=== PATIENT | female | born 1955 | race Caucasian/White ===

== ENCOUNTER 2022-04-07 07:50 | Outpatient (REF) | payer OTHER, SELFPAY ==
[2022-04-07 11:48] LABS: Hematocrit 41.1 % (37.0-47.0); Hemoglobin 13.6 g/dl (12.0-16.0); Mean Corpuscular HGB Conc 33.1 g/dl (31.0-35.0); Mean Corpuscular Hemoglobin 28.8 pg (27.0-33.0); Mean Corpuscular Volume 86.9 fL (80.0-98.0); Platelet Count 197 X10*3/uL (160-400); Red Blood Count 4.73 X10*6/uL (4.20-5.50); Red Cell Distribution Width 12.5 % (11.0-16.0); White Blood Count 3.8 X10*3/uL (4.8-10.8)
[2022-04-07 12:07] LABS: Alanine Aminotransferase 17 U/L (0-31); Albumin Level 4.1 g/dL (3.5-5.0); Alkaline Phosphatase 49 U/L (39-117); Anion Gap 10 (12-20); Aspartate Amino Transferase 17 U/L (5-31); Bilirubin Total 0.6 mg/dL (0.0-1.0); Blood Urea Nitrogen 16 mg/dL (9-16); Calcium 9.3 mg/dL (8.4-10.2); Carbon Dioxide 32 mmol/L (22-29); Chloride 100 mmol/L (96-108); Cholesterol 188 mg/dL; Estimated Glomerular Filt Rate > 60; Glucose Fasting 72 mg/dL (60-99); HDL Cholesterol 62 mg/dL; LDL Cholesterol Calculated 115 mg/dl; Sodium 138 mmol/L (135-145); Total Protein 6.3 g/dL (6.5-8.0); Triglycerides 59 mg/dL
[2022-04-07 12:10] LABS: TSH reflex Free T4 0.01 uIU/mL (0.32-4.0)
[2022-04-07 12:44] LABS: Free T4 (Free Thyroxine) 0.83 ng/dL (0.71-1.85)
== END 2022-04-07 07:51 | disposition home or self-care (01) ==
LOC: HO.WFDLDS 07:50
PROVIDERS: Visit Provider Hospitalist
DX: Z00.00 Encounter for general adult medical examination without abnormal findings (principal)
CPT/HCPCS: 36415; 80053; 80061; 84439; 84443; 85027

== ENCOUNTER 2022-05-21 11:14 | Outpatient (REF) | payer OTHER, SELFPAY ==
[2022-05-21 14:46] LABS: Anion Gap 14 (12-20); Blood Urea Nitrogen 13 mg/dL (9-16); Calcium 9.2 mg/dL (8.4-10.2); Carbon Dioxide 26 mmol/L (22-29); Chloride 105 mmol/L (96-108); Estimated Glomerular Filt Rate > 60; Glucose Random 87 mg/dL (60-115); Potassium 3.7 mmol/L (3.3-5.1); Sodium 141 mmol/L (135-145)
[2022-05-21 15:06] LABS: TSH reflex Free T4 0.01 uIU/mL (0.32-4.0)
[2022-05-21 16:00] LABS: Free T4 (Free Thyroxine) 0.94 ng/dL (0.71-1.85)
== END 2022-05-21 11:15 | disposition home or self-care (01) ==
LOC: HO.WFDLDS 11:14
PROVIDERS: Psychiatry & Neurology Neurology; Visit Provider Hospitalist
DX: G43.909 Migraine, unspecified, not intractable, without status migrainosus (principal); E03.9 Hypothyroidism, unspecified
CPT/HCPCS: 36415; 80048; 84439; 84443

== ENCOUNTER 2022-06-29 11:21 | Outpatient (REF) | payer OTHER, SELFPAY ==
--- NOTE | ~2022-06-29 | XR_ITS ---
EXAMINATION: XR SHOULDER, RIGHT CLINICAL INFORMATION: Right shoulder pain COMPARISON: None TECHNIQUE: AP external rotation, Grashey, scapular Y, and axillary views of the right shoulder. FINDINGS: The bones and soft tissues are normal. No fracture. Glenohumeral and acromioclavicular alignment is anatomic with normal joint space. No abnormal soft tissue calcifications. XR/XR shoulder RT min 2V IMPRESSION: Normal right shoulder.
== END 2022-06-29 11:22 | disposition home or self-care (01) ==
LOC: HO.HOSX 11:21
PROVIDERS: Visit Provider Orthopaedic Surgery
DX: M24.811 Other specific joint derangements of right shoulder, not elsewhere classified (principal)
CPT/HCPCS: 73030; 99202

== ENCOUNTER 2022-06-30 10:48 | Outpatient (REF) | payer OTHER, SELFPAY ==
[2022-06-30 14:15] LABS: MANUAL DIFF FLAG NO
[2022-06-30 14:54] LABS: Alanine Aminotransferase 19 U/L (0-31); Albumin Level 4.3 g/dL (3.5-5.0); Alkaline Phosphatase 79 U/L (39-117); Anion Gap 15 (12-20); Aspartate Amino Transferase 22 U/L (5-31); Bilirubin Total 0.6 mg/dL (0.0-1.0); Blood Urea Nitrogen 11 mg/dL (9-16); Calcium 9.6 mg/dL (8.4-10.2); Carbon Dioxide 29 mmol/L (22-29); Chloride 96 mmol/L (96-108); Estimated Glomerular Filt Rate > 60; Glucose Random 76 mg/dL (60-115); Potassium 3.1 mmol/L (3.3-5.1); Sodium 137 mmol/L (135-145); Total Protein 6.7 g/dL (6.5-8.0)
[2022-06-30 15:17] LABS: T4 Thyroxine 5.5 ug/dL (4.5-12.0); Thyroid Stimulating Hormone 0.01 uIU/mL (0.32-4.0)
[2022-06-30 15:51] LABS: Basophils Percent Auto 0.7 % (0-2); Eosinophils Absolute Auto 0.3 X10*3/uL (0.0-0.4); Eosinophils Percent Auto 5.8 % (0-4); Hematocrit 40.9 % (37.0-47.0); Hemoglobin 14.1 g/dl (12.0-16.0); Imm Gran Abs Auto 0.01 X10*3/uL (0.00-0.03); Imm Gran Pct Auto 0.2 % (0.0-0.4); Lymphocytes Absolute Auto 1.4 X10*3/uL (1.2-4.9); Lymphocytes Percent Auto 33.6 % (20-40); Mean Corpuscular HGB Conc 34.5 g/dl (31.0-35.0); Mean Corpuscular Hemoglobin 29.5 pg (27.0-33.0); Mean Corpuscular Volume 85.6 fL (80.0-98.0); Mean Platelet Volume 9.8 fL (9.4-12.3); Monocytes Absolute Auto 0.4 X10*3/uL (0.1-1.2); Monocytes Percent Auto 9.1 % (2-11); Neutrophils Absolute Auto 2.2 x10*3/uL (2.0-8.3); Neutrophils Percent Auto 50.6 % (45-73); Platelet Count 258 X10*3/uL (160-400); Red Blood Count 4.78 X10*6/uL (4.20-5.50); Red Cell Distribution Width 12.8 % (11.0-16.0); White Blood Count 4.3 X10*3/uL (4.8-10.8)
[2022-07-02 10:03] LABS: Triiodothyronine T3 Free 3.3 pg/mL (2.3-4.2)
[2022-07-06 04:47] LABS: Testosterone-Albumin 4.2 g/dL (3.6-5.1); Testosterone-Bioavailable 13.1 ng/dL (0.5-8.5); Testosterone-Free 6.8 pg/mL (0.2-5.0); Testosterone-SHBG 129 nmol/L (14-73); Testosterone-Total 184 ng/dL (2-45)
[2022-07-07 22:12] LABS: Estradiol Ultra Sensitive 9 pg/mL
[2022-07-14 13:47] LABS: Progesterone 0.3 ng/mL
== END 2022-06-30 10:49 | disposition home or self-care (01) ==
LOC: HO.WFDLDS 10:48
PROVIDERS: Visit Provider Nurse Practitioner
DX: E03.9 Hypothyroidism, unspecified (principal); N95.9 Unspecified menopausal and perimenopausal disorder; Z79.890 Hormone replacement therapy
CPT/HCPCS: 36415; 80053; 82670; 84144; 84402; 84403; 84436; 84443; 84481; 85025

== ENCOUNTER 2022-07-17 14:54 | Outpatient (REF) | payer OTHER, SELFPAY ==
--- NOTE | ~2022-07-17 | MR_ITS ---
EXAMINATION: MR SHOULDER WITHOUT CONTRAST, RIGHT CLINICAL INFORMATION: Right shoulder pain following a fall one year ago. Internal derangement. COMPARISON: Right shoulder radiographs dated 06/29/2022. TECHNIQUE: MRI of the shoulder without contrast was performed on a high-field scanner. FINDINGS: ROTATOR CUFF: Mild supraspinatus tendinosis without a measurable rotator cuff tendon tear. No muscle atrophy or fatty infiltration. BICEPS: Absence of the proximal long head biceps tendon, consistent with a tear and tendon retraction. CORACOACROMIAL ARCH: The undersurface of the acromion is minimally curved with no subacromial spur. Mild acromioclavicular osteoarthritis. Fluid within the subacromial-subdeltoid bursa consistent with mild bursitis. LABRUM/CAPSULE: No displaced labral tear. Intact joint capsule. GLENOHUMERAL JOINT/MARROW: Mild articular cartilage signal heterogeneity with tiny marginal osteophytes. No acute osseous injury. DELTOID: Mild edema within the lateral deltoid muscle which could represent a mild strain or be related to recent injection. MR/MR shoulder RT wo con IMPRESSION: 1. Mild supraspinatus tendinosis without a measurable rotator cuff tendon tear. 2. Absence of the proximal long head biceps tendon, consistent with a tear and retraction. 3. Mild acromioclavicular osteoarthritis. Mild subacromial-subdeltoid bursitis. 4. Minimal glenohumeral arthrosis. 5. Mild strain of the lateral deltoid muscle.
== END 2022-07-17 14:55 | disposition home or self-care (01) ==
LOC: HO.MRI 14:54
PROVIDERS: Visit Provider Orthopaedic Surgery
DX: M24.811 Other specific joint derangements of right shoulder, not elsewhere classified (principal)
CPT/HCPCS: 73221

== ENCOUNTER → 2022-08-10 12:40 | Outpatient (BNVA) | payer OTHER, SELFPAY | PROVIDERS: PCP Hospitalist; Visit Provider Orthopaedic Surgery | DX: M24.811 Other specific joint derangements of right shoulder, not elsewhere classified (principal) | CPT/HCPCS: 20610; 99212; J1100 ==

== ENCOUNTER 2025-08-06 15:02 | Outpatient (AMB) | payer OTHER, SELFPAY ==
--- OUTSIDE RECORDS SUMMARY | 2024-07-03 14:11 | XMS_ITS | Encounter Summary ---
Author Organization [place] [address] Care Team Providers Care Solar Thermal Installer Name Role Phone Elsa Shaffer MD Primary Care Provider [phone] Encounter Details Date Type Department Care Team (Late st Contact Info) Description 07/03/2024 3:11 PM EDT Hospital Encounter TH HISTORIC ENCOUNTERS EASTERN CONVERSION ONLY Radha Cervantes, PA [address] [place] [address] Social History Tobacco Use Types Packs/Day Years Used Date Smoking Tobacco: Former Cigarettes 0 1 990 - 1969 Alcohol Use Standard Drinks/Week Comments Yes 0 (1 standard drink = 0.6 oz pur e alcohol) socially Interpersonal Safety Answer Date Record ed Physical Abuse Unrecognized value 02/02/2025 Verbal Abuse Unrecognized value 02/02/2025 Comments No Sex and Gender Information Value Date Recorded Sex Assigned at Female 08/12/2024 3:32 PM EST Legal Sex Female 4:53 PM EST Gender Identity Female 08/12/2024 3:33 PM EST Sexual Orientation Straight 08/12/2024 3: 32 PM EST documented as of this encounter Last Filed Vital Signs Vital Sign Reading Time Taken Comments Blood Pressure 158/88 07/03/2024 3:26 PM EDT Sit ting Left arm Pulse 87 07/03/2024 3:26 PM EDT Temperature - - Respiratory Rate - - Oxygen Saturation - - Inhaled Oxygen Concentration - - Weight 64 kg (141 lb) 07/03/2024 3:26 PM EDT Height 157.5 cm (5' 2 ) 07/03/2024 3:26 PM EDT Body Mass Index 25.79 07/03/2024 3:26 PM EDT documented in this encounter Functional Status * Calculated C-SSRS Risk Score (Lifetime/Recent) Answer Date of Assessment Author No Risk Indicated 02/02/2025 1:21 PM EDT Lakesha Dang RN * [place] Suicide Severity Rating Scale (Screener/Recent Self-Report) Question Answer Date of Assessment Author 1. Wish to be (Past 1 Month) No 025 1:21 PM EDT Lakesha Menchaca RN 2. Non-Specific Active Suici munira Thoughts (Past 1 Month) No 02/02/2025 1:21 PM EDT Agustina Menchaca RN 6. Suicidal Behavior (Lifetime) No 5 1:21 PM EDT Lakesha Menchaca RN documented as of this encounter Progress Notes * KAROL Henry - 07/03/2024 3:00 PM EDT [facility] Cc: Migraine Interval history Patient returns for follow up visit. She has been taking 25 mg amitriptyline (50 mg was too much, cannot recall specific SE). She continues to note same migraine frequency and has been waking during the night with migraine at times. [place] intermittent lava lamp sensation in her head and nausea at times. She discussed option of Botox treatment with Dr. Valdez but has decided that she is not interested. Last visit history: No new neurological symptom concerning since last visit Patient tried elavil and she had dry mouth and she couldn't tolerate the medication Since last visit she still reported almost daily headache most of them migrainous in nature with nausea photophobia phonophobia throbbing pain Reviewed and discussed lab results with the patient with normal CBC kidney liver function good level for vitamin D and vitamin B12 HPI: Viviane Rodriguez is a 69 y.o. year old female referred to our center by No primary care provider on file. for evaluation and management of headache 68 yo female with PMH of allergies , asthma allergy induced , Low TSH she is following with Dr Guido , gall bladder removal , Rt shoulder surgery , otosclerosis , tinnitus , foot surgery for bunions Headache: Patient presents for evaluation of headache. Symptoms began about when she was 4 years ago. Generally, the headaches last about several days and occur sometimes daily in morning improve with headaches, . The headaches are usually worse in the morning. The headaches are usually moderate and poorly described occasionally throbbing pounding and are located in Left frontal. The patient rates her most severe headaches a 9 on a scale from 1 to 10. Recently, the headaches have been decreasing in both severity and frequency. Work attendance or other daily activities are not affected by the headaches. Precipitating factors include: weather changes. The headaches are usually not preceded byan aura. Associated neurologic symptoms: worsening school/work performance. The patient denies nausea , photophobia phonophobia. Home treatment has included acetaminophen, amitriptyline, fioricet, Imitrex oral and propanolol, darkening the room, resting and sleeping with different response improvement. Other history includes: migraine headaches diagnosed in the past. Family history includes migraine headaches in mother and grandmother. Patient recently moved from [place] to [place] her headaches have been slightly different it is more of a morning headache that if does not resolve switch to a migrainous headache once she triedNurtec , uberlvy , inderal with no improvement in her headaches She also on hormonal therapy because of low testosterone She had MRI brain reported normal for her age She did one session of Botox 10/23 only one session , she stopped as she moved here to [place] She has difficulty with sleep wake up multiple times to urinate , she does not recall any snoring or waking with difficulty breathing Used take fiorcet Social history: Tobacco: Medical [place] license Alcohol No Drug use: marijuana She just moved from [place] Family history: There is no significant family history of multiple sclerosis, rheumatoid arthritis,type 1 diabetes, lupus, or other autoimmune diseases. Neurologic Exam: BP 158/88 (BP Location: Left arm, Patient Position: Sitting, Cuff Size: Adult Regular) Pulse 87 Ht 5' 2 (1.575 m) Wt 64 kg (141 lb) BMI 25.79 kg/m?? MS: AOx3 CN: perrla, V1-3 intact to LT, face symmetric, bilateral SCM/trapezius 5/5, tongue/uvula/palate midline Motor: 5/5 in all extremities Sensation: Intact to light touch, temperature, and vibration in all extremities Reflexes: 2+ in bilateral biceps and patellae, toes downgoing bilaterally Cerebellar: FNF intact bilaterally, FFM intact bilaterally, HODA intact bilaterally, tandem gait normal, romberg negative Labs: Reviewed available lab CBC liver function Imaging: No images were reviewed by me. A/P: Viviane Rodriguez is a 69 y.o. year old female with migraine. Trial of amitriptyline 50 mg was not tolerated, and headaches continue at 25 mg daily. She requests a trial of 30 mg to see if she will respond without adverse effects and will send a new prescription to her pharmacy. Begin trial of amitriptyline 30 mg hs Patient to monitor for any signs or symptoms of event concern for sleep apnea Sumatriptan abortive Take one tablet as needed for headaches, may repeat in 2 hours, do not exceed more than 2 per day Counseled on avoidance of migraine triggers, particularly sleep deprivation, missed meals, dehydration, certain foods and avoiding excessive caffeine/NSAIDs. -RTC in 3months for follow up The patient and I discussed the clinical picture during today's appointment. Additional time was spent prior to the actual appointment reviewing records, lab values and imaging results and preparing documentation for today's visit. There was also time spent following the in person visit documenting, arranging for further diagnostic testing and follow-up appointments. The entire time spent in this process was greater than 30 minutes. The majority of the actual yyhi-nm-aemt visit was spent counseling the patient with respect to the current neurological picture. Radha Cervantes PA-C documented in this encounter Plan of Treatment Upcoming Encounters Date Type Department Care Team (Late st Contact Info) Description 09/11/2025 2:30 PM EST Office Visit Internal Medicine - [address] [place] [address] Elsa Shaffer MD [address] [place] [phone] documented as of this encounter Visit Diagnoses Not on filedocumented in this encounter Care Teams Solar Thermal Installer Relationship Specialty Start Date End Date Elsa Shaffer MD PCP - General 10/15/22 07/27/24 documented as of this encounter
--- NOTE | 2025-08-06 15:04 | A.PHYSOV_ITS ---
Vital Signs 08/06/25 15:14 Height 5 ft 3 in Weight 117 lb BMI 20.7 Intake Visit Reasons: Left hip injection Intake Note: Patient is a 70 year old female in office for a left hip injection. Advanced Practice Registered Nurse Required: No Allergies prednisone Allergy (Verified 08/06/25 15:05) skin sensitive [facility] Medical History (Updated 08/06/25 @ 16:06 by KAROL Kumar) Asthma exacerbation, mild Scoliosis Depression Anxiety Surgical History History of cancer surgery History of cholecystectomy H/O shoulder surgery H/O tubal ligation Family History Father Colon cancer Mother No family history of mental disorder Anxiety Social History Household Members: None Both parents involved: No Housing: Condominium Alcohol intake: current Alcohol intake frequency: holidays/special occasions only Patient Tobacco Use Status: Former Tobacco user e-Cigarette/Vaping Use: Never Used Substance Use Type: Marijuana service: No Current occupational status: retired 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 All questions were answered to the patient's satisfaction. Verbal consent was obtained. The patient was eager to proceed. Patient was cleansed with Betadine, ethyl chloride was then used to desensitize the skin. Using an a 25-gauge needle 40 mg of Kenalog and 3 mL 2% lidocaine were injected over the greater trochanter of maximal tenderness. The patient tolerated the procedure well without immediate complication. Postinjection instructions were given. Hip (Bursa) Injection - : Left All charges added?: Procedure code (CPT) selection complete Office Meds Kenalog 40 mg/mL suspension for injection Performing Provider: KAROL Kumar [place] [facility] [place] [facility] Administered by: KAROL Kumar on 08/06/25 16:07 Dose Route Admin Location Dispensed Lot Number Expiration Date [facility] Technical Administrative Assistant 40 mg intra-articular 1 mL [id number] [employer] Total Dispensed Waste 1 mL 0 % lidocaine (PF) 20 mg/mL (2 %) injection solution Performing Provider: KRAOL Kumar Performing Location: [facility] Administered by: KAROL Kumar on 08/06/25 16:07 Dose Route Admin Location Dispensed Lot Number Expiration Date [facility] Technical Administrative Assistant 60 mg intra-articular 50 mL [id number] Total Dispensed Waste 50 mL 0 % Assessment & Plan Assessment & Plan (1) Trochanteric bursitis of left hip: Code(s): M70.62 - Trochanteric bursitis, left hip Category: Medical Plan: Ms. Rodriguez is a 70-year-old female seen in evaluation today for left greater trochanteric bursitis. Today she consented to left hip bursal injection. She was given post-injection instructions, recommend: Moist heat compresses for 15 minutes up to 5 times daily. Continue abduction exercises. Follow-up with our office as needed. Orders: Orders AMB Hip/Bursa Injection Today M70.62 - Trochanteric bursitis, left hip Coding Level of Care Code Procedure Only Diagnoses Trochanteric bursitis of left hip M70.62 CPT Codes AMB Hip Injection - Hip/Bursa Injection - 17987: Left ([id number])
[2025-08-06 15:14] VITALS: BMI 20.7
--- OUTSIDE RECORDS SUMMARY | 2025-08-06 19:48 | XMS_ITS | Clinical Summary ---
Author Organization [facility] Address [address] [place] [address] Phone Care Team Providers Care Rn Angiography Name Role Phone Elsa Shaffer MD Primary Care Provider Allergies Active Allergy Reactions Criticality Noted Date Comments Buspirone Rash Low 08/21/2024 Medications venlafaxine (EFFEXOR-XR) 150 MG 24 hr capsule Take 150 mg by mouth daily. Active venlafaxine (EFFEXOR-XR) 37.5 MG 24 hr capsule Take 1 capsule by mouth every morning. 08/01/2024 Active esomeprazole (NEXIUM) 40 MG capsule Take 40 mg by mouth 2 (two) times a day. Active triamterene-hyd roCHLOROthiazid e (MAXZIDE-25) 37.5-25 mg per tablet Take 1 tablet by mouth daily. 10/04/2023 Active ARMOUR THYROID 90 mg Tab Take 90 mg by mouth daily. Active ADVAIR HFA 230-21 mcg/actuation inhaler Inhale 2 puffs into the lungs 2 (two) times a day. Active amitriptyline (ELAVIL) 10 MG tablet Take 30 mg by mouth daily. Active fluticasone propionate (FLONASE) 50 mcg/actuation nasal spray 1 spray by Nasal route daily. 02/03/2024 Active valACYclovir (VALTREX) 500 MG tablet Take 500 mg by mouth 2 (two) times a day. Active Family History Medical History Relation Comments Brain cancer Brother Diverticulitis Brother Stomach cancer Father Alzheimer's disease Maternal Grandfather Alzheimer's disease Maternal Grandmother Diabetes type I Maternal Grandmother Social phobia Mother Diabetes type II Paternal Grandfather Post-traumatic stress disorder Sister Relation Status Comments Brother Father Maternal Grandfather Maternal Grandmother Mother Paternal Grandfather Sister Social History Tobacco Use Types Packs/Day Years Used Date Smoking Tobacco: Former Cigarettes Passive Smoke Exposure: Past Smokeless Tobacco: Never Tobacco Cessation:Counseling Given: No Comments:Quit smoking January 1990 Alcohol Use Standard Drinks/Week Comments Yes 0 (1 standard drink = 0.6 oz pur e alcohol) Rarely Education Answer Date Recorded Are you interested in more education? Not on wes e 06/02/2024 Are you concerned about learning? Not on file 06/02/2024 No 06/02/2024 No 06/02/2024 Digital Access Answer Date Recorded No 06/02/2024 No 06/02/2024 Reliable internet access at home? Not on file 06/02/2024 Device with a working camera? Not on file Comments Unknown Sex and Gender Information Value Date Recorded Sex Assigned at Female 08/14/2024 8:39 PM EST Legal Sex Female 9:24 AM EDT Gender Identity Female 08/14/2024 8:39 PM EST Sexual Orientation Straight 08/14/2024 8: 39 PM EST Plan of Treatment Health Maintenance Due Date Last Done Comments Adult Td,Tdap Booster 1954 POTASSIUM LEVEL 1954 DEPRESSION SCREENING 1966 SMOKING Hx and SMOKELESS TOB ACCO SCREENING 1967 HEPATITIS C SCREENING 1972 MAMMOGRAM 1994 COLOGUARD 1999 COLONOSCOPY 1999 COLORECTAL CANCER SCREENING 1999 FIT TEST 1999 FOBT 1999 SIGMOIDOSCOPY 1999 VIRTUAL COLONOSCOPY 1999 PNEUMOCOCCAL VACCINES (50+ y ears) (1 of 1 - PCV) 2004 ZOSTER VACCINES (1 of 2) 2004 OSTEOPOROSIS SCREENING INITI AL (ONE-TIME) 2019 INFLUENZA VACCINE (#1) 2025 COVID-19 VACCINE (1 - 2024-2 6 season) 2025 LIPID PANEL 07/26/2028 07/26/2023 RSV VACCINE (1 - 1-dose 75+ series) 2029 HEPATITIS A VACCINES Aged Out No long er eligible based on patient's age to complete this topic HIB VACCINES Aged Out No longer eligi ble based on patient's age to complete this topic MENINGOCOCCAL VACCINES (ACWY) Aged Out No longer eligible based on patient's age to complete this topic MENINGOCOCCAL VACCINES (B) Aged Out N o longer eligible based on patient's age to complete this topic Medical Devices Not on [place] [id number] [facility] MEDICARE [place] [address] [facility] [place] [id number] [facility] MEDICARE [address] [place] [facility] MEDICARE [address] [place] [facility] [place] [id number] [facility] MEDICARE REPLACEMENT Care Teams Rn Angiography Relationship Specialty Start Date End Date Elsa Shaffer MD [address] [phone] PCP - General Internal Medicine 05/29/24 Additional Source Comments The information contained in this document represents components of the legal health record. It is not the complete legal health record.[facility]
--- OUTSIDE RECORDS SUMMARY | 2025-08-06 19:48 | XMS_ITS | Data Portability ---
Author Organization [place] [facility] [employer] Address [address] [place] [address] Care Team Providers Care Legal Mediator Name Role Phone CRISTOBAL CASTANO Primary Care Provider CRISTOBAL Rivas Referring Provider Unavailable Assessment No assessment recorded. Plan of Treatment Reminders Order Date Submit Date Provider Last Modified By Organization Details Last Modified Time Details Appointments OFFICE VISIT 2025 02:30P M Not available Not available Not available Lab TSH + free T4, serum [address], Lab Department, [place], [address], 02/27/2025 14:40:33 T4, free, serum [address], Lab Department, [place], [address], 01/31/2025 21:01:33 T3, total, serum [address], Lab Department, [place], [address], 12/26/2024 15:24:50 thyroid peroxidas e (tpo) Ab, serum [address], Lab Department, [place], [address], 01/31/2025 21:01:35 thyroglob ulin Ab, serum 2024 025 [facility], [address] [facility], Lab Department, [place], [address], 12/26/2024 15:24:50 Referral None recorded. Procedures None recorded. Surgeries None recorded. Imaging None recorded. Medication Orders levothyro xine 75 mcg tablet 2024 025 [id number], [address] [facility], [place], [place], [id number], 12/26/2024 15:23:23 Patient TargetsNo targets recorded. Patient Instructions Encounter Date Encounter Id Patient Instructions Last Modified By Organization Details Last Modified Time 12/26/2024 [id number] 1. Stop taking t he [place] Thyroid. 2. Start doing the levothyroxine 75 mcg daily 3. I would like to see you in 2 months and do the blood test a week before our appointment Not available 12/26/2024 15:24:02 02/27/2025 [id number] hypothyroidism: care instructions Not available 02/27/2025 14:39:08 1. Your thyroid levels are doing well I would like you to continue with the levothyroxine 75 mcg daily. 2. Talked with the nurse practitioner doing your hormones stating that you are having hot flashes in your not able to sleep well at night. Not available 02/27/2025 14:39:50 Reason for Referral None Reported. Results Created Date Observation Date Name Description Value Unit Range Abnormal Flag Note LastModifiedBy Organization Detail LastModifiedTime 02/01/2001/31/2025 THYRO XINE FREE free T4 1.33 NG/dL 0.70-1 .80 Not Available [facility] [address] [place], [address], 01/31/2025 21:01:33 02/01/20 25 01/31/2025 THYRO XINE TOTAL T4, total 10.2 mcg/d L 4.5-10 .9 Not Available [facility] [address] [place], [address], 01/31/2025 21:01:34 02/01/20 25 01/31/2025 THYRO GLOBU MARISEL ANTIB FLORIN antithyroglo bulin Ab 22.0 I_uni t/mL <=60.0 Not Available [facility] [address] [place], [address], 01/31/2025 21:01:34 02/01/20 25 01/31/2025 THYRO ID PEROX IDASE ANTIB FLORIN thyroid peroxidase Ab 43.0 I_uni t/mL <=60.0 Not Available [facility]/S [address] [place], [address], 01/31/2025 21:01:35 02/01/20 25 01/31/2025 THYRO ID PEROX IDASE ANTIB FLORIN note See Report [facility], [address], [place] [address] Not Available [facility] [address] [place], [address], 01/31/2025 21:01:35 Result Notes None recorded. Problems Name Problem SNOMED Code Status Onset Date Resolution Date Notes Provider Name and Address Organization Details Recorded Time Hypothyroidism 18932985 Active 2024 Paras Moe MD [address] [place], [address], [facility] - [facility] 15:19:30 Problem Notes None recorded. Medical Equipment None Reported. Medications Name Sig Start Date Stop Date Status Note LastModified by Organization Details LastModified Time nystatin 100,000 unit/mL oral suspension SHAKE LIQUID AND TAKE 7.5 ML BY MOUTH TWICE DAILY FOR 14 DAYS active Not Available Not Available No t Available venlafaxine ER 37.5 mg capsule,ext ended release 24 hr TAKE 1 CAPSULE BY MOUTH DAILY active Not Available Not Available No t Available venlafaxine ER 75 mg capsule,ext ended release 24 hr TAKE 1 CAPSULE BY MOUTH DAILY IN THE EVENING. active Not Available Not Available No t Available [place] Thyroid 90 mg tablet TAKE 1 TABLET BY MOUTH EVERY DAY active Not Available Not Available No t Available venlafaxine 75 mg tablet TAKE TWO TABLETS BY MOUTH TWICE A DAY active Not Available Not Available No t Available nystatin 100,000 unit/gram topical ointment APPLY TO AFFECTED AREA S) THREE TIMES A DAY active Not Available Not Available No t Available sucralfate 1 gram tablet TAKE ONE TABLET BY MOUTH FOUR TIMES A DAY active Not Available Not Available No t Available venlafaxine ER 150 mg capsule,ext ended release 24 hr TAKE 1 CAPSULE BY MOUTH EVERY DAY active Not Available Not Available No t Available valacyclovi r 500 mg tablet TAKE ONE TABLET BY MOUTH TWICE A DAY active Not Available Not Available No t Available amitriptyli ne 50 mg tablet TAKE ONE TABLET BY MOUTH EVERY NIGHT AT BEDTIME active Not Available Not Available No t Available levothyroxi ne 75 mcg tablet TAKE 1 TABLET EVERY DAY 2024 active Not Available Not Available Not Avai lable triamcinolo ne acetonide 0.025 % topical cream APPLY TO AFFECTED AREA 3 TO 4 TIMES A PIYUSH NEEDED FOR IRRITATIO N. active Not Available Not Available No t Available amitriptyli ne 10 mg tablet TAKE THREE TABLETS BY MOUTH EVERY DAY active Not Available Not Available No t Available esomeprazol e magnesium 40 mg capsule,del ayed release TAKE 1 CAPSULE BY MOUTH TWICE DAILY BEFORE MEALS active Not Available Not Available No t Available buspirone 10 mg tablet TAKE ONE TABLET BY MOUTH THREE TIMES A DAY active Not Available Not Available No t Available buspirone 7.5 mg tablet TAKE ONE TABLET BY MOUTH TWICE A DAY active Not Available Not Available No t Available triamterene 37.5 mg-hydrochl orothiazide 25 mg tablet TAKE ONE TABLET BY MOUTH DAILY. active Not Available Not Available No t Available ketoconazol e 2 % topical cream APPLY TOPICALLY TO THE AFFECTED AREA TWICE DAILY active Not Available Not Available No t Available fluticasone propionate 50 mcg/actuati on nasal spray,suspe nsion ADMINISTE R 2 SPRAYS IN EACH NOSTRIL DAILY active Not Available Not Available No t Available hydroxyzine pamoate 25 mg capsule TAKE ONE CAPSULE BY MOUTH TWICE A DAY NEEDED FOR ANXIETY active Not Available Not Available No t Available Advair HFA 230 mcg-21 mcg/actuati on aerosol inhaler INHALE 2 PUFFS BY MOUTH TWICE DAILY. RINSE MOUTH WITH WATER AFTER USE FOR AFTERTAST E AND INCIDENCE OF CANDIDIAS IS. 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 12/26/2024 14:30:28 Date Recorded Body weight Oxygen saturation Heart rate Systolic And Diastolic Provider Name and Address Organization Details Last Updated DateTime 02/27/2025 65302.45 g 97 % 81 /min 118/78 mm[Hg] ARIELLE D[facility] 02/27/2025 14:20:37 Social History None recorded. Functional Status None recorded. Mental Status None recorded. Family History Nothing Reported. Medical History No medical history recorded. Gynecological HistoryNo gynecological history recorded. Obstetrics History GPAL:G 0 P 0 0 0 0 Past Encounters Encounter ID Performer Location Encounter Start Date Encounter Closed Date Diagnosis/Indication Diagnosis SNOMED-CT Code Diagnosis ICD10 Code Diagnosis IMO Codes Diagnosis Note [id number] Paras Moe MD [facility] [address] [place] [address] 12/26/2024 14:22:56 12/26/2024 15:29:01 Hypothyroidism 63761180 E03.9 [id number] She has had several blood work with TSH that have been suppressed . She is experienci ng weight loss. They have occasional racing heart rate. Overall all signs of possible high levels of thyroid.Th e symptomato logy could be related to the use of [place] Thyroid which has a high T3-T4 ratio and has been associated with tachyarrhy thmias in TSH.I need to find out if you do have a thyroid condition that requires supplement ation. I also need to find out the etiology that is why your thyroid is not working if is not working indeed. Will do some blood test for that.I am going to discontinu e the [place] Thyroid and switch to 75 mcg of levothyrox ine. [id number] Paras Moe MD [facility] [address] [place] [address] 02/27/2025 13:53:59 02/27/2025 14:40:12 Hypothyroidism 54564419 E03.9 [id number] Her most recent thyroid function test shows normal total T3 and free T4. She presents with Negative thyroid antibodies . Currently at 75 mcg of levothyrox ine. I will recommend to stay on that dose. Health Concerns Section Related Observation LastModified by Organization Detai ls LastModified Time None Recorded Concern Status LastModified by Organization Details LastModified Time None Recorded Advance Directives Directive None Recorded Payers Insurance Date Sequence Insurance Name Policy Number Policy Oseguera Covered Member ID Oseguera Member ID Guarantor Name 03/05/2025 1 [employer] (MEDICARE REPLACEMENT/ ADVANTAGE - PPO) Viviane Rodriguez [id number] Viviane Rodriguez Notes Date Note Type Note Provider Name and Address Organization Details Recorded Time 12/26/2024 text/html 77-year-old female referred because of abnormal thyroid functions. She tells me that for many years she has been followed thyroid supplementation. Guardedly [place] Thyroid 90. She has been living in [place] where she had the diagnosis.Used to be a smoker but quit in 1989. May have an occasional alcohol drinker.Family history she had 3 siblings none of them have thyroid palpitations. Does not recall any of her parents or grandparents with thyroid conditions.She does have issues with asthma, stomach problems but appears to be nervous stomach. She has PTSD anxiety.She takes penciclovir, triamterene 1 daily, uses albuterol occasionally and takes venlafaxine.She had a tubal ligation, cholecystectomy, cataract, shoulder repair, bladder sling. Paras Moe MD [address] [place], [address], [facility] - [facility] 01/07/2025 21:59:37 02/27/2025 text/html 69-year-old female referred because of abnormal thyroid functions. She tells me that for many years she has been followed thyroid supplementation. [place] Thyroid 90. She has been living in [place] where she had the diagnosis.Used to be a smoker but quit in 1989. May have an occasional alcohol drinker.Family history she had 3 siblings none of them have thyroid palpitations. Does not recall any of her parents or grandparents with thyroid conditions.She does have issues with asthma, stomach problems but appears to be nervous stomach. She has PTSD anxiety.She takes penciclovir, triamterene 1 daily, uses albuterol occasionally and takes venlafaxine.She had a tubal ligation, cholecystectomy, cataract, shoulder repair, bladder sling. She is being complaining of bursitis on her hip. She also had problems with her shoulder.She has not been able to get sleep at night due to the aches and pains. Paras Moe MD [address] [place], [address], [facility] - [facility] 03/05/2025 08:51:01 OBGyn Episode No OBEpisode recorded.
--- OUTSIDE RECORDS SUMMARY | 2025-08-06 19:48 | XMS_ITS ---
Author Name [facility] Organization Unknown History of Medication Use Medication Directions Dispensed Refills Start Date End Date Stat levothyroxine 75 mcg tablet Take 1 tablet every day by oral route. 12/26/2024 active amitriptyline (ELAVIL) tablet 50 mg Take 1 tablet (50 mg total) by mouth every night at bedtime. 05/08/2024 active sucralfate (CARAFATE) 1 g tablet Take 1 tablet (1 g total) by mouth 4 (four) times a day. 05/01/2024 active [place] Thyroid 90 MG tablet TAKE ONE TABLET BY MOUTH EVERY DAY 04/24/2024 active esomeprazole (NexIUM) 40 MG capsule Take 1 capsule (40 mg total) by mouth 2 (two) times a day. before meals 04/24/2024 active busPIRone (BUSPAR) 7.5 MG tablet Take 1 tablet (7.5 mg total) by mouth 2 (two) times a day. 04/12/2024 active venlafaxine (EFFEXOR-XR) 150 MG 24 hr capsule Take 1 capsule (150 mg total) by mouth daily. 04/12/2024 active Advair HFA 230-21 MCG/ACT inhaler 2 puffs 2 (two) times a day. 04/08/2024 active fluticasone (FLONASE) 50 MCG/ACT nasal spray ADMINISTER 2 SPRAYS IN EACH NOSTRIL DAILY 04/08/2024 active nystatin (MYCOSTATIN) ointment APPLY TO AFFECTED AREA 3 TO 4 TIMES A DAY. 04/08/2024 active triamcinolone (KENALOG) 0.025 % cream APPLY TO AFFECTED AREA 3 TO 4 TIMES A PIYUSH NEEDED FOR IRRITATION. 04/08/2024 active valACYclovir (VALTREX) 500 MG tablet TAKE ONE TABLET BY MOUTH 2 TIMES DAILY. 04/08/2024 active triamterene-hydroch lorothiazide (MAXZIDE-25) 37.5-25 MG per tablet Take 1 tablet by mouth daily. 03/25/2024 active amitriptyline (ELAVIL) 10 MG tablet Take 2 tablets (20 mg total) by mouth every evening. 03/08/2024 aborted Diclofenac Sodium 1 % GEL Apply topically. 02/29/2024 active albuterol 108 (90 Base) MCG/ACT inhaler Inhale 2 puffs into the lungs. 10/31/2023 active mupirocin (BACTROBAN) 2 % ointment Apply locally twice daily 06/21/2023 active Calcium 600-5 MG-MCG TABS Take 1 tablet by mouth 2 (two) times a day. 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 RINSE MOUTH WITH WATER AFTER USE FOR AFTERTASTE AND INCIDENCE OF CANDIDIASIS. DO NOT SWALLOW active amitriptyline 10 mg tablet TAKE THREE TABLETS BY MOUTH EVERY DAY active amitriptyline 50 mg tablet TAKE ONE TABLET BY MOUTH EVERY NIGHT AT BEDTIME active [place] Thyroid 90 mg tablet TAKE 1 TABLET BY MOUTH EVERY DAY active buspirone 10 mg tablet TAKE ONE TABLET BY MOUTH THREE TIMES A DAY active buspirone 7.5 mg tablet TAKE ONE TABLET BY MOUTH TWICE A DAY active esomeprazole magnesium 40 mg capsule,delayed release TAKE 1 CAPSULE BY MOUTH TWICE DAILY BEFORE MEALS active fluticasone propionate 50 mcg/actuation nasal spray,suspension ADMINISTER 2 SPRAYS IN EACH NOSTRIL DAILY active hydroxyzine pamoate 25 mg capsule TAKE ONE CAPSULE BY MOUTH TWICE A DAY NEEDED FOR ANXIETY active ketoconazole 2 % topical cream APPLY TOPICALLY TO THE AFFECTED AREA TWICE DAILY active nystatin 100,000 unit/gram topical ointment APPLY TO AFFECTED AREA S) THREE TIMES A DAY active nystatin 100,000 unit/mL oral suspension SHAKE LIQUID AND TAKE 7.5 ML BY MOUTH TWICE DAILY FOR 14 DAYS active Prescription - Renewal active sucralfate 1 gram tablet TAKE ONE TABLET BY MOUTH FOUR TIMES A DAY active triamcinolone acetonide 0.025 % topical cream APPLY TO AFFECTED AREA 3 TO 4 TIMES A PIYUSH NEEDED FOR IRRITATION. active triamterene 37.5 mg-hydrochlorothiaz liv 25 mg tablet TAKE ONE TABLET BY MOUTH DAILY. active valacyclovir 500 mg tablet TAKE ONE TABLET BY MOUTH TWICE A DAY active venlafaxine 75 mg tablet TAKE TWO TABLETS BY MOUTH TWICE A DAY active venlafaxine ER 150 mg capsule,extended release 24 hr TAKE 1 CAPSULE BY MOUTH EVERY DAY active venlafaxine ER 37.5 mg capsule,extended release 24 hr TAKE 1 CAPSULE BY MOUTH DAILY active venlafaxine ER 75 mg capsule,extended release 24 hr TAKE 1 CAPSULE BY MOUTH DAILY IN THE EVENING. active Problems Problem Status Onset Date Problem Type Date of Resolution Source Migraine without aura and without status migrainosus, not intractable active EncounterDiagnosisAct CTT HNEMG Hypothyroidism active 2024-12-26 ProblemAct ENS _PHCCT Encounters Encounter Type Encounter Reason Primary Diagnosis Location Date Ambulatory [facility], 02/11 Ambulatory [facility], 02/11 Ambulatory [facility], 02/11 Ambulatory [facility] 12/12 Ambulatory [facility] 12/12 Ambulatory [facility] 12/12 Ambulatory [facility] 11/11 Care Team Organization Name Specialty Phone Email Start Date End Da [facility], 11/22/2024 05/27/2025
--- OUTSIDE RECORDS SUMMARY | 2025-08-06 19:48 | XMS_ITS | Clinical Summary ---
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 0 10/31/2023 Active busPIRone (BUSPAR) 7.5 MG tablet Take 1 tablet (7.5 mg total) by mouth 2 (two) times a day. 0 04/12/2024 Active Calcium 600-5 MG-MCG TABS Take 1 tablet by mouth 2 (two) times a day. 0 04/29/2023 Active Diclofenac Sodium 1 % GEL Apply topically. 0 02/29/2024 Active esomeprazole (NexIUM) 40 MG capsule Take 1 capsule (40 mg total) by mouth 2 (two) times a day. before meals 0 04/24/2024 Active fluticasone (FLONASE) 50 MCG/ACT nasal spray ADMINISTER 2 SPRAYS IN EACH NOSTRIL DAILY 0 04/08/2024 Active Advair HFA 230-21 MCG/ACT inhaler 2 puffs 2 (two) times a day. 0 04/08/2024 Active mupirocin (BACTROBAN) 2 % ointment Apply locally twice daily 0 06/21/2023 Active nystatin (MYCOSTATIN) ointment APPLY TO AFFECTED AREA 3 TO 4 TIMES A DAY. 0 04/08/2024 Active sucralfate (CARAFATE) 1 g tablet Take 1 tablet (1 g total) by mouth 4 (four) times a day. 0 05/01/2024 Active [place] Thyroid 90 MG tablet TAKE ONE TABLET BY MOUTH EVERY DAY 0 04/24/2024 Active triamcinolone (KENALOG) 0.025 % cream APPLY TO AFFECTED AREA 3 TO 4 TIMES A PIYUSH NEEDED FOR IRRITATION. 0 04/08/2024 Active triamterene-hydroch lorothiazide (MAXZIDE-25) 37.5-25 MG per tablet Take 1 tablet by mouth daily. 0 03/25/2024 Active valACYclovir (VALTREX) 500 MG tablet TAKE ONE TABLET BY MOUTH 2 TIMES DAILY. 0 04/08/2024 Active venlafaxine (EFFEXOR-XR) 150 MG 24 hr capsule Take 1 capsule (150 mg total) by mouth daily. 0 04/12/2024 Active amitriptyline (ELAVIL) 10 MG tablet 3 po qd 90 tablet 5 07/03/2024 Active Social History Tobacco Use Types Packs/Day Years Used Date Smoking Tobacco: Unknown Tobacco Cessation:Counseling Given: Not Answered Sex and Gender Information Value Date Recorded Sex Assigned at Female 07/06/2022 12:32 PM EDT Gender Identity Not on file Sexual Orientation Not on file Job Start Date Occupation Industry Not on file Not on file Not on file Last Filed Vital Signs Vital Sign Reading Time Taken Comments Blood Pressure 158/88 07/03/2024 3:26 PM EDT Pulse 87 07/03/2024 3:26 PM EDT Temperature 35.9 C (96.6 F) 05/08/2024 1:14 PM EDT Respiratory Rate - - Oxygen Saturation 99% 05/08/2024 1:14 PM EDT Inhaled Oxygen Concentration - - Weight 64 kg (141 lb) 07/03/2024 3:26 PM EDT Height 157.5 cm (5' 2 ) 07/03/2024 3:26 PM EDT Body Mass Index 25.79 07/03/2024 3:26 PM EDT Plan of Treatment Health Maintenance Due Date Last Done Comments Hepatitis C Screening 1955 Depression Screening 1966 Preventative Health Evaluation 1972 DTap / Tdap / Td (1 - Tdap) 1973 Colon Cancer Screening (Colonoscopy) 1999 Breast Cancer Screening (Mammogram) 2004 Shingrix-Zoster Vaccine (1 of 2) 2004 Fall Risk Assessment 2019 Osteoporosis Screening (DEXA Scan) 2019 Pneumococcal Vaccine (3 of 3 - PPSV23 or PCV20) 06/23/2024 06/23/2019, 07/13/2012 COVID-19 Vaccine ( - season) 2025 10/02/2023, 07/13/2022, 12/05/2021, Additional history exists Influenza Vaccine (#1) 2025 10/02/2023 RSV Adult > 60+ Yrs or (1 - 1-dose 75+ series) 2029 Hepatitis B Vaccines Aged Out No long er eligible based on patient's age to complete this topic RSV Ped < 20 months Aged Out No longe r eligible based on patient's age to complete this topic Viviane Rodriguez Personal/Family Self 1955 [address] [place] [address]
--- OUTSIDE RECORDS SUMMARY | 2025-08-06 19:49 | XMS_ITS | Clinical Summary ---
Author Organization [address] [facility] Address [address] [place] [address] Phone Care Team Providers Care Medicaid Nurse Name Role Phone Elsa Shaffer MD Primary Care Provider [phone] Allergies Active Allergy Reactions Criticality Noted Date Comments Amoxicillin Rash 10/07/2016 Buspirone Rash Low 08/21/2024 Cephalexin Rash 10/07/2016 Ciprofloxacin Hcl Rash 10/07/2016 Minocycline Hcl Rash 10/07/2016 Prednisone Rash Low 10/07/2016 Thinning of skin Skin peels At full dose can tear skin At full dose can tear skin Medications fluticasone propionate (FLONASE) 50 mcg/actuation nasal spray Administer 2 sprays into affected nostril(s) 1 (one) time each day. 4 Active ALBUTEROL SULFATE INHL Inhale 2 Puffs into the lungs as needed. Active triamterene-hyd roCHLOROthiazid e (MAXZIDE-25) 37.5-25 mg per tablet Take 1 tablet by mouth 1 (one) time each day. 90 tablet 3 5 Active venlafaxine (EFFEXOR) 75 mg tablet Take 2 tablets (150 mg total) by mouth 1 (one) time each day AND 1 tablet (75 mg total) at bedtime. 270 tablet 3 5 Active testosterone 100 mg pellet by implant route. Active nystatin (MYCOSTATIN) ointment Apply topically 3 (three) times a day. Apply to affected area 3-4x/day 30 g 1 05/19/202 5 01/25/20 26 Active valACYclovir (VALTREX) 500 mg tablet Take 1 tablet (500 mg total) by mouth 2 (two) times a day. 180 each 3 5 02/08/20 26 Active nystatin (MYCOSTATIN) cream Apply to affected area 3-4x/day 30 g 1 5 Active fluticasone propion-salmete roL (ADVAIR HFA) 230-21 mcg/actuation inhaler Inhale 2 puffs by mouth 2 (two) times a day. Rinse mouth with water after use to reduce aftertaste and incidence of candidiasis. Do not swallow. 1 each 2 5 Active albuterol HFA (PROAIR HFA ; PROVENTIL HFA ; VENTOLIN HFA) 90 mcg/actuation inhaler INHALE 2 PUFFS BY MOUTH EVERY 6 (SIX) HOURS IF NEEDED FOR WHEEZING. 1 each 1 5 Active potassium chloride (KLOR-CON M10) 10 mEq CR tablet Take 1 tablet (10 mEq total) by mouth 1 (one) time each day. Tablet may be swallowed whole (do not crush/chew/suck on) OR broken in half and each half swallowed separately OR dissolved (whole tablet) in ~4 ounces of water (allow ~2 minutes to dissolve, stir well and administer immediately). 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 Acute superficial gastritis with hemorrhage 07/14 Gastroesophageal reflux dise ase with esophagitis without hemorrhage 07/26/2023 Assessment & Plan (03/05/2025 9:17 PM EDT): Hiatal hernia 07/26/2023 Nonintractable headache 06/11/2023 Resolved Problems Problem Noted Date Diagnosed Date Resolved Date Hiatal hernia with GERD 12/20/202401/12 Encounters Date Type Department Care Team Description 05/08/2025 Telephone Internal Medicine - [address] [place] [address] Elsa Shaffer MD from Last 3 Months Immunizations Immunization Administration Dates Next Due COVID-19 (Pfizer/Comirnaty) 12yo and older 10/02/2023 Influenza Quadravalent, 0.5m l (Fluad) 65yo and older 10/02/2023,06/28/2022 Influenza trivalent, 0.5mL ( Fluad) 65yo and older 10/02/2023 Influenza, Unspecified 07/11/2020,2018,06/20/2018,06/17,06/23/2016 Pfizer (ages 12 & older) Biv alent, COVID-19 10/02/2023,07/13/2022 Pfizer SARS-CoV-2 COVID-19, mRNA, LNP-S, preservative free 07/13/2022,12/05/2021,12/19/2020,11/28 Pneumococcal conjugate 13 va lent (Prevnar 13, PCV13) 2mo and older 06/23/2019 Pneumococcal conjugate 20 va lent (Prevnar 20, PCV 20) 2mo and older 10/08/2024 Pneumococcal polysaccharide 23 valent (Pneumovax 23) 2yo and older 07/13/2012 Tdap Tetanus diptheria acell ular pertussis (Boostrix; Adacel) 7yo and older 03/05/2025 Surgical History Surgery Date Site/Laterality Comments FOOT SURGERY Right PROCEDURE: HISTORICAL FOOT SURGERY SHOULDER SURGERY Right PROCEDURE: HISTORICAL SHOULDER SURGERY OTHER SURGICAL HISTORY Right PROCEDURE: HISTORICAL EAR SURGERY CATARACT EXTRACTION Bilateral BLADDER SUSPENSION TUBAL LIGATION CHOLECYSTECTOMY Medical History Medical History Date Comments Scoliosis Uterine cancer ([facility] V24, [facility] V28) Osteopenia after menopause Asthma Hiatal hernia Acute migraine COPD (chronic obstructive pulmonary disease) ([facility] V24, [facility] V28) Family History Medical History Relation Name Comments Other: Other Father Breast cancer Neg Hx Cervical cancer Neg Hx Colon cancer Neg Hx Prostate cancer Neg Hx Relation Name Status Comments Father Social History Tobacco Use Types Packs/Day Years Used Date Smoking Tobacco: Former Cigarettes 0 1 990 - 1970 Tobacco Cessation:Counseling Given: Not Answered Alcohol Use Standard Drinks/Week Comments Yes 0 [...] Orientation Straight 08/12/2024 3: 32 PM EST Obstetrics History Last Filed Vital Signs Vital Sign Reading Time Taken Comments Blood Pressure 126/84 03/05/2025 2:47 PM EDT Pulse 88 03/05/2025 2:47 PM EDT Temperature 36.4 C (97.5 F) 03/05/2025 2:47 PM EDT Respiratory Rate 15 02/03/2025 7:48 AM EDT Oxygen Saturation 98% 03/05/2025 2:47 PM EDT Inhaled Oxygen Concentration - - Weight 55.7 kg (122 lb 12.8 oz) 03/05/2025 2:47 PM EDT Height 157.5 cm (5' 2 ) 02/19/2025 9:32 AM EDT Body Mass Index 22.46 02/19/2025 9:32 AM EDT Plan of Treatment Upcoming Encounters Date Type Department Care Team (Late st Contact Info) Description 09/11/2025 2:30 PM EST Office Visit Internal Medicine - [address] [place] [address] Elsa Shaffer MD [address] [place] [phone] Health Maintenance Due Date Last Done Comments Zoster Vaccines (1 of 2) 1973 RSV Immunization Adult Patients (1 - Risk 50-74 years 1-dose series) 2004 Social Influencers of Health Screening 08/12/2022 Breast Cancer Screening 05/12/2025 05/12/2023 COVID-19 Vaccine ( season) 2025 10/08/2024, 10/02/2023, 10/02/2023, Additional history exists Influenza Vaccine (#1) 2025 , 10/02/2023, 06/28/2022, Additional history exists Falls Risk Assessment 02/03/2026 02/03/2025 Medicare Annual Wellness Visit 03/05/2026 03/05/2025 Cholesterol Screening (Lipid Panel) 01/26/2030 01/26/2025, 07/26/2023 Osteoporosis Screening (Bone Density Screening) 04/29/2033 04/29/2023, 2021, 2021 Colorectal Cancer Screening: Colonoscopy 07/21/2033 07/21/2023 DTaP,Tdap,and Td Vaccines (2 - Td or Tdap) 03/05/2035 03/05/2025 Hepatitis C Screening Completed 04/29/2023 Pneumococcal Vaccine: 50+ Years Completed 10/08/2024, 06/23/2019, 07/13/2012 Depression Screening Completed 03/05/2025 HIB Vaccines Aged Out No longer eligi ble based on patient's age to complete this topic HPV Vaccines Aged Out No longer eligi ble based on patient's age to complete this topic Hepatitis A Vaccines Aged Out No long er eligible based on patient's age to complete this topic Hepatitis B Vaccines Aged Out No long er eligible based on patient's age to complete this topic IPV Vaccines Aged Out No longer eligi ble based on patient's age to complete this topic MMR Vaccines Aged Out No longer eligi ble based on patient's age to complete this topic Meningococcal ACWY Vaccine Aged Out N o longer eligible based on patient's age to complete this topic Meningococcal B Vaccine Aged Out No l onger eligible based on patient's age to complete this topic RSV Immunization Patients Under 20 months Aged Out No longer eligible based on patient's age to complete this topic Varicella Vaccines Aged Out No longer eligible based on patient's age to complete this topic Medical Devices Implanted 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 Device 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 Shelf Expiration Date Model / Serial / Lot Implants Implants Right: Shoulder Internal And External Fixation Internal and External Fixation Right: Toes Procedures Procedure Name Priority Date/Time Associated Diagnosis Comments LIPID PANEL WITH REFLEX TO DIRECT LDL Routine 01/26/2025 10:10 AM EDT Screening for ischemic heart disease COLONOSCOPY Routine 07/21/2023 [facility] SCREENING DIGITAL Routine 05/12/2023 9:25 AM EDT Encounter for screening mammogram for malignant neoplasm of breast [facility] DEXA AXIAL SKELETON Routine 04/29/2023 9:59 AM EDT Encounter for screening for osteoporosis HEPATITIS C SCREENING Routine 04/29/2023 from Last 3 Months or Most Recently Relevant to Health Maintenance Results * (ABNORMAL) Lipid panel with reflex to direct LDL (01/26/2025 10:10 AM EDT) Cholesterol 202(H) 0 - 200 mg/dL LAB CHEMISTRY METHOD 01/26/2025 3:07 PM EDT [facility] Triglycerides 131 0 - 150 mg/dL LAB CHEMISTRY METHOD 01/26/2025 3:07 PM EDT [facility] HDL 58 >=40 mg/dL LAB CHEMISTRY METHOD 01/26/2025 3:07 PM EDT [facility] LDL Calculated 118(H) 0 - 100 mg/dL LAB CHEMISTRY METHOD 01/26/2025 3:07 PM EDT [facility] VLDL Cholesterol Arun 26.2 mg/dL LAB CHEMISTRY METHOD 01/26/2025 3:07 PM EDT [facility] Non HDL Chol. (LDL+VLDL) 144 <145 mg/dL LAB CHEMISTRY METHOD 01/26/2025 3:07 PM EDT [facility] Chol/HDL Ratio 3.5 0.0 - 4.4 LAB CHEMISTRY METHOD 01/26/2025 3:07 PM EDT [facility] Blood Venous blood specimen / Unknown Venipuncture / Unknown 01/26/2025 10:10 AM EDT 01/26/2025 10:10 AM EDT us Aissatou Ortega NP LAB BLOOD ORDERABLES Final Resul t [facility] [address] [place] [address], [place] [phone] * Colonoscopy (07/21/2023) Pathologist [facility] Colonoscopy no interpretation , abstracted Anatomical Region Laterality Modality Other us Historical Provider HEALTH MAINTENANCE Final Result * [facility] SCREENING DIGITAL (05/12/2023 9:25 AM EDT) Anatomical Region Laterality Modality Mammography 04/29/2023 8:50 AM EDT Narrative 05/12/2023 9:25 AM EDT Diagnostic Imaging Department [address] [place] [id number] Patient: VIVIANE SLAUGHTER Joselito ChungB./Age/Sex: 1955 - 68 - F Unit#: [id number] Location/Status: [facility] CLI Mnemonic/Ordering Site: [facility] Ordering Physician: ELSA SHAFFER MD [facility] Screening Digital - 04/29/23 - 0950 Report Status:Signed EXAM: [facility] Screening Digital EXAM DATE AND TIME: 04/29/2023 9:51 AM HISTORY: Annual screening COMPARISON: 04/30/2013, 01/14/2012 TECHNIQUE: Bilateral digital breast tomosynthesis was performed in the CC and MLO projections. Computer aided detection with [employer] 3D 3.1 was employed. TISSUE DENSITY: b. There are scattered areas of fibroglandular density. FINDINGS: No suspicious masses, grouped microcalcifications, or areas of architectural distortion are seen. The skin and vascularity are unremarkable. IMPRESSION: Stable mammographic appearance of the breasts. No evidence of malignancy is seen. A negative mammogram in the presence of a clinically suspicious palpable abnormality does not preclude the possibility of malignancy or alter the indications for biopsy. BI-RADS: Category 1: Negative RECOMMENDATION(S): 1: Routine screening mammogram BILATERAL in 1 year. 3341F, 7025F Dictating Physician: JAVI CISNEROS MD Electronically Signed by: JAVI CISNEROS MD Dic Date/Time: 05/12/2350 Sign date/Time: 05/12/23 09 Procedure Note Javi Cisneros - 10/19/2023 Diagnostic Imaging Department [address] [place] [address] Patient: SUKHJINDERVIVIANE /Age/Sex: 1955 - 68 - F Unit#: [id number] Location/Status: [facility] CLI Mnemonic/Ordering Site: [facility] Ordering Physician: ELSA SHAFFER MD [facility] Screening Digital - 04/29/23949 Report Status:Signed EXAM: [facility] Screening Digital EXAM DATE AND TIME: 04/29/2023 9:51 AM HISTORY: Annual screening COMPARISON: 04/30/2013, 01/14/2012 TECHNIQUE: Bilateral digital breast tomosynthesis was performed in the CCand MLO projections. Computer aided detection with [employer] 3D 3.1was employed. TISSUE DENSITY: b. There are scattered areas of fibroglandular density. FINDINGS: No suspicious masses, grouped microcalcifications, or areas ofarchitectural distortion are seen. The skin and vascularity are unremarkable. IMPRESSION: Stable mammographic appearance of the breasts. No evidence of malignancyis seen. A negative mammogram in the presence of a clinically suspicious palpable abnormality does not preclude the possibility of malignancy or alter the indications for biopsy. BI-RADS: Category 1: Negative RECOMMENDATION(S): 1: Routine screening mammogram BILATERAL in 1 year. 3341F, 7025F Dictating Physician: JAVI CISNEROS MD Electronically Signed by: JAVI CISNEROS MD Dic Date/Time: 05/12/23849 Sign date/Time: 05/12/23924 Elsa Shaffer MD IMG BI PROCEDURES Final Result * [facility] DEXA AXIAL SKELETON (04/29/2023 9:59 AM EDT) Anatomical Region Laterality Modality Mammography 04/29/2023 8:50 AM EDT Narrative 04/29/2023 9:59 AM EDT Diagnostic Imaging Department [address] [place] [address] Patient: VIVIANE SLAUGHTER Joselito /Age/Sex: 1955 - 67 - F Unit#: [id number] [facility] Ordering Physician: ELSA SHAFFER MD [facility] Dexa Axial Skeleton - 04/29/23947 Report Status:Signed HISTORY: The patient is a 67-year-old postmenopausal female with clinical concern for metabolic bone disease. FINDINGS: Dual energy x-ray absorptiometry of the lumbar spine and femurs is performed. The mean bone mineral density at L1-L4 is 1.331 gm/cm2 which is 113% of that of young normals and 137% of that of age matched controls. This yields a T-score of 1.3 and a Z-score of 3.0 and there is therefore no evidence of osteoporosis or osteopenia here. The mean bone mineral density of the femurs bilaterally is 0.765 gm/cm2 which is 76% of that of young normals and 93% of that of age matched controls. This yields a T-score of -1.9 and a Z-score of -0.4 which is diagnostic of osteopenia. The T-score of the right femoral neck is -2.0 and that of the left femoral neck is -2.4 which is diagnostic of osteopenia. IMPRESSION: 1. Osteopenia. 2. FRAX analysis yields a 10-year probability of major osteoporotic fracture of 12.1% and a 10-year probability of hip fracture of 2.3%. Code 63536 Dictating Physician: BRYAN RUBIN MD Electronically Signed by: BRYAN RUBIN MD Dic Date/Time: 04/29/2358 Sign date/Time: 04/29/2359 Procedure Note Bryan Rubin MD - 10/19/2023 Diagnostic Imaging Department [address] [place], [place] [id number] Patient: VIVIANE SLAUGHTER Joselito /Age/Sex: 1955 - 67 - F Unit#: [id number] Location/Status: [facility] CLI [facility]em[facility] Ordering Physician: ELSA SHAFFER MD [facility] Dexa Axial Skeleton - 04/29/23947 Report Status:Signed HISTORY: The patient is a 67-year-old postmenopausal female withclinical concern for metabolic bone disease. FINDINGS: Dual energy x-ray absorptiometry of the lumbar spine and femursis performed. The mean bone mineral density at L1-L4 is 1.331 gm/cm2 which is113% of that of young normals and 137% of that of age matched controls. Thisyields a T-score of 1.3 and a Z-score of 3.0 and there is therefore no evidenceof osteoporosis or osteopenia here. The mean bone mineral density of the femurs bilaterally is 0.765 gm/mh9qdakz is 76% of that of young normals and 93% of that of age matched controls.This yields a T-score of -1.9 and a Z-score of -0.4 which is diagnostic of osteopenia. The T-score of the right femoral neck is -2.0 and that of theleft femoral neck is -2.4 which is diagnostic of osteopenia. IMPRESSION: 1. Osteopenia. 2. FRAX analysis yields a 10-year probability of major osteoporoticfracture of 12.1% and a 10-year probability of hip fracture of 2.3%. Code 43858 Dictating Physician: BRYAN RUBIN MD Electronically Signed by: BRYAN RUBIN MD Dic Date/Time: 04/29/23957 Sign date/Time: 04/29/23958 Elsa Shaffer MD IMG BI PROCEDURES Final Result * Hepatitis C Screening (04/29/2023) [facility] Hepatitis C Screening abstracted Historical Provider HEALTH MAINTENANCE Final Result from Last 3 Months or Most Recently Relevant to Health Maintenance Insurance [employer]AGE on file Advance Directives * Full Code - Default (Latest Code Status on File) Date Activated Date Inactivated Comments 02/02/2025 8:11 AM 02/03/2025 6:15 PM This is orde r is used when code status has not been discussed with the patient, or code status is otherwise unknown/unconfirmed To update the patient's code status, place a code status order. Do not modify or discontinue any currently active code status orders. Care Teams Medicaid Nurse Relationship Specialty Start Date End Date Elsa Shaffer MD [address] [phone] PCP - General Internal Medicine 07/28/24
== END 2025-08-06 15:24 | disposition home or self-care (01) ==
LOC: HO.HPHYS 15:02
PROVIDERS: Visit Provider Physician Assistant
DX: M70.62 Trochanteric bursitis, left hip (principal)
CPT/HCPCS: 20610

== ENCOUNTER → 2025-08-06 15:02 | Outpatient (BNVA) | payer OTHER, SELFPAY | PROVIDERS: Visit Provider Physician Assistant | DX: M70.62 Trochanteric bursitis, left hip (principal) | CPT/HCPCS: 20610; J2003; J3301 ==

== ENCOUNTER 2025-09-10 13:07 | Outpatient (AMB) | payer OTHER, SELFPAY ==
--- OUTSIDE RECORDS SUMMARY | 2024-07-03 14:11 | XMS_ITS | Encounter Summary ---
Author Organization [place] [address] Care Team Providers Care Roll Coating Machine Operator Name Role Phone Elsa Shaffer MD Primary Care Provider [phone] Encounter Details Date Type Department Care Team (Late st Contact Info) Description 07/03/2024 3:11 PM EDT Hospital Encounter TH HISTORIC ENCOUNTERS EASTERN CONVERSION ONLY Radha Cervantes, PA [address] [place] [address] Social History Tobacco Use Types Packs/Day Years [...] 3:26 PM EDT documented in this encounter Progress Notes * KAROL Henry - 07/03/2024 3:00 PM EDT [facility] Cc: Migraine Interval history Patient returns for [...] mother and grandmother. Patient recently moved from [place] to [place] her headaches have been slightly different it [...] she stopped as she moved here to [place] She has difficulty with sleep wake up multiple times to urinate , she does not recall any snoring or waking with difficulty breathing Used take fiorcet Social history: Tobacco: Medical [place] license Alcohol No Drug use: marijuana She just moved from [place] Family history: There is no significant family [...] follow-up appointments. The entire time spent in thisprocess was greater than 30 minutes. The majority of the actual pymb-fp-baeo visit was spent counseling the patient with respect to the current neurological picture. Radha Cervantes PA-C documented in this encounter Plan of Treatment Not on file documented as of this encounter Visit Diagnoses Not on filedocumented in this encounter Care Teams Roll Coating Machine Operator Relationship Specialty Start Date End Date Elsa Shfafer MD PCP - General 10/15/22 07/27/24 documented as of this encounter
[2025-09-10 13:13] VITALS: BMI 20.7
--- NOTE | 2025-09-10 13:13 | A.PHYSOV ---
Vital Signs 09/10/25 13:13 Height 5 ft 3 in Weight 117 lb BMI 20.7 Intake Visit Reasons: Right shoulder injection Intake Note: Patient is a 70 year old female here today for a right shoulder injection. Allergies prednisone Allergy (Verified 09/10/25 13:15) skin sensitive [facility] Medical History (Updated 09/10/25 @ 13:29 by KAROL Kumar) Asthma exacerbation, mild Scoliosis Depression Anxiety Surgical History History of cancer surgery History of cholecystectomy H/O shoulder surgery H/O tubal ligation Family History Father Colon cancer Mother No family history of mental disorder Anxiety Social History Household Members: None Both parents involved: No Housing: Condominium Alcohol intake: current Alcohol intake frequency: holidays/special occasions only Patient Tobacco Use Status: Former Tobacco user e-Cigarette/Vaping Use: Never Used Substance Use Type: Marijuana service: No Current occupational status: retired 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 We agree with a subacromial injection is the next best step in the treatment plan. Verbal consent was obtained. Using aseptic technique, the skin was cleansed with Betadine. Ethyl chloride was used to desensitize the skin. Using a posterior approach, 40 mg of Kenalog and 3 mL 2% lidocaine were injected using a 25-gauge inch and a half needle into the subacromial space. The patient tolerated the procedure well without immediate complication. Postinjection instructions were given. Shoulder Injection - : Right All charges added?: Procedure code (CPT) selection complete Office Meds Kenalog 40 mg/mL suspension for injection Performing Provider: KAROL Kumar Performing Location: [facility] [place] [facility] Administered by: KAROL Kumar on 09/10/25 13:30 Dose Route Admin Location Dispensed Lot Number Expiration Date [facility] [place] [employer] 40 mg intrabursal 1 mL [id number] [employer] Total Dispensed Waste 1 mL 0 % lidocaine (PF) 20 mg/mL (2 %) injection solution Performing Provider: KAROL Kumar Performing Location: [facility] [place] [facility] Administered by: KAROL Kumar on 09/10/25 13:30 Dose Route Admin Location Dispensed Lot Number Expiration Date [facility] [place] [employer] 60 mg intrabursal 5 mL [id number] [employer] Total Dispensed Waste 5 mL 40 % Assessment & Plan Assessment & Plan (1) Impingement of right shoulder: Code(s): M25.811 - Other specified joint disorders, right shoulder Category: Medical Plan Ms. Rodriguez is a 70-year-old female seen in evaluation for right shoulder impingement. Today right subacromial injection. She was given post-injection instructions, recommend cold or moist heat compresses for 15 minutes up 5 times daily. She should avoid repetitive overhead activities. Continue rotator cuff strengthening. Follow-up with our office as needed. Thank you for allowing me to participate in the care of your patient. Orders: Orders AMB Shoulder Injection Today M25.811 - Other specified joint disorders, right shoulder Coding Level of Care Code Procedure Only Diagnoses Impingement of right shoulder M25.811 CPT Codes AMB Shoulder Injection - Hip/Bursa Injection - : Right ([id number])
--- OUTSIDE RECORDS SUMMARY | 2025-09-10 15:08 | XMS_ITS | Patient Health Record ---
Author Organization [facility] [place] Address [address] [place] [address] Care Team Providers Care School Curriculum Developer Name Role Phone Marly Gómez Unavailable [phone] Allergies Allergen (clinical drug ingredient) Drug/Non Drug Allergy documented on EMR Reaction Allergy Type Onset Date Status predniSONE rash Drug Allergy Active Reason For Referral No Information Medications Medication SIG (Take, Route, Frequency, Duration) Notes Start Date End Date Status Triamterene-HCTZ 37.5-25 MG Tablet 1 tablet in the morning Orally Once a day Active Acyclovir Active Levothyroxine Sodium 100 MCG Capsule 1 tablet in the morning on an empty stomach Orally Once a day; Duration: 30 days Active Venlafaxine HCl 75 MG Tablet 1 tablet wi th food Orally Once a day Active Vitamin K2 100 MCG Capsule as directed Orally Active Vitamin D3 250 MCG (99293 UT) Tablet 1 tablet Orally Once a day Active Vitamin C Active Social History Section Notes: former smoker ~ quit 1989 caffine ~ 3 cups alcohol ~ occ medical THC Problems Problem Type SNOMED Code ICD Code Onset Dates Problem Status W/U Status Risk Notes Problem Malignant neoplasm o f corpus uteri, excluding isthmus (550706360) Malignant neoplasm of corpus uteri, unspecified (C54.9) Active confirmed Problem Scoliosis (434668166) Scoliosis, unspecified (M41.9) Active confirmed Problem hypercholesterolemia (disorder) (84186527) Hypercholesteremia (E78.00) Active confirmed Problem Hypothyroidism (08303888) Hypothyroidism, unspecified type (E03.9) Active confirmed Problem Hyperthyroidism (83966597) Hyperthyroidism (E05.90) Active confirmed Problem Mixed anxiety and depressive disorder (522868584) Depression with anxiety (F41.8) Active confirmed Vital Signs Heart Rate 88 /min 08/31/2025 Respiratory Rate 20 /min 08/31/2025 Height-cm 157.48 cm 08/31/2025 Oximetry 96 % 08/31/2025 Blood pressure diastolic 93 mm Hg 08/31/2025 Weight-kg 53.98 kg 08/31/2025 Height 62 in 08/31/2025 Blood pressure systolic 155 mm Hg 08/31/2025 Weight 119 lbs 08/31/2025 BMI 21.76 kg/m2 08/31/2025 Encounters Encounter Location Date Provider Diagnosis [facility] [place] [address] [place] [address] 08/03/2025 Marly Gómez Localized edema R60. 0 ; Depression with anxiety F41.8 ; Malignant neoplasm of corpus uteri, unspecified C54.9 ; Hyperthyroidism E05.90 ; Scoliosis, unspecified M41.9 and Thrush, oral B37.0 [facility] [place] [address] [facility] [address] [place] [address] 08/31/2025 Marly Gómez White coat syndrome with hypertension I10 ; Localized swelling, mass and lump, left upper limb R22.32 ; Hypothyroidism, unspecified type E03.9 and Hypercholesteremia E78.00 Assessments Encounter Date Diagnosis (ICD Code) Assessment Notes Treatment Notes Treatment Clinical Notes Section Notes 08/03/2025 Localized edema (ICD-10 - R60.0) patient recent;ly relocated to this area from [place] recently had covid end of may and lost weight from it diagnosed with scoliosis as a teenager 08/03/2025 Depression with anxiety (ICD-10 - F41.8) patient recent;ly relocated to this area from [place] recently had covid end of may and lost weight from it diagnosed with scoliosis as a teenager 08/31/2025 Localized swelling, mass and lump, left upper limb (ICD-10 - R22.32) ordered an u/s of the area Patient into the office today with multiple issues 1. Her B/P continues to be elevated 2. She has a moderate swelling and redness in her left anticubital area 08/31/2025 White coat syndrome with hypertension (ICD-10 - I10) she is taking triamterine for her blood pressure and absolutely refused to make any adjustments. She wants to try to find a holistic treatment Patient into the office today with multiple issues 1. Her B/P continues to be elevated 2. She has a moderate swelling and redness in her left anticubital area 08/31/2025 Hypothyroidism, unspecified type (ICD-10 - E03.9) she was concerned with her TSH level and requested to return to her previous dose of Levothyroxine. She reports dry skin and sleep issues as indications that her thryoid medicine needs to be adjusted Patient into the office today with multiple issues 1. Her B/P continues to be elevated 2. She has a moderate swelling and redness in her left anticubital area 08/03/2025 Malignant neoplasm of corpus uteri, unspecified (ICD-10 - C54.9) patient recent;ly relocated to this area from [place] recently had covid end of may and lost weight from it diagnosed with scoliosis as a teenager 08/03/2025 Hyperthyroidism (ICD-10 - E05.90) follows with Gabriel Rios sander hand [phone] patient recent;ly relocated to this area from [place] recently had covid end of may and lost weight from it diagnosed with scoliosis as a teenager 08/31/2025 Hypercholesteremia (ICD-10 - E78.00) She refused any type of cholesterol medication, She denies any diet issues and wants to look for an 'herbal' remedy to control her cholesterol. We agreed to revisit it when she f/u in December Patient into the office today with multiple issues 1. Her B/P continues to be elevated 2. She has a moderate swelling and redness in her left anticubital area 08/03/2025 Scoliosis, unspecified (ICD-10 - M41.9) patient recent;ly relocated to this area from [place] recently had covid end of may and lost weight from it diagnosed with scoliosis as a teenager 08/03/2025 Thrush, oral (ICD-10 - B37.0) patient recent;ly relocated to this area from [place] recently had covid end of may and lost weight from it diagnosed with scoliosis as a teenager 08/03/2025 Other has hormone inplants. Sees Julissa browning in [place] [phone] De Souza for f/u screening s/p ovarian cancer patient recent;ly relocated to this area from [place] recently had covid end of may and lost weight from it diagnosed with scoliosis as a teenager Plan Of Treatment Next Appt Details Provider Name:Marly mane, 11/29/2025 02:15:00 PM, [address] [place] [address], [address], [place], [address], [id number] Insurance Providers Payer Name Payer Address Payer Phone Subscriber Number Group Number Insured Name Patient Relationship to Insured Coverage Start Date Coverage End Date [employer] [address] [address] [place] [address] [id number] RENETTA SLAUGHTER Self - patient is the insured Medical (General) History Surgical History Surgery Date(Month/Year) bunion R toe R foot bone spur ear drum replacement pelvic sling tubal ligation sinus surgery R shoulder surgery / rotator cuff gall bladder removal hernia repair
--- OUTSIDE RECORDS SUMMARY | 2025-09-10 15:08 | XMS_ITS | Data Portability ---
Author Organization [place] [facility] Address [address] [place] [address] Care Team Providers Care Department Head [employer] Name Role Phone CRISTOBAL CASTANO Primary Care Provider CRISTOBAL Rivas Referring Provider Unavailable Assessment No assessment recorded. Plan of Treatment Reminders Order Date Submit Date Provider Last Modified By Organization Details Last Modified Time Details Appointments OFFICE VISIT 2025 02:30P M Not available Not available Not available Lab TSH + free T4, serum [address], Lab Department, [place], [address], 02/27/2025 14:40:33 T4, free, serum [address], Lab Department, [place], [address], 01/31/2025 21:01:33 T3, total, serum [address], Lab Department, [place], [address], 12/26/2024 15:24:50 thyroid peroxidas e (tpo) Ab, serum [address], Lab Department, [place], [address], 01/31/2025 21:01:35 thyroglob ulin Ab, serum 2024 025 , [address] [facility], Lab Department, [place], [address], 12/26/2024 15:24:50 Referral None recorded. Procedures None recorded. Surgeries None recorded. Imaging None recorded. Medication Orders levothyro xine 75 mcg tablet 2024 025 [id number], [address], [place], [place], [id number], 12/26/2024 15:23:23 Patient TargetsNo targets recorded. Patient Instructions Encounter Date Encounter Id Patient Instructions Last Modified By Organization Details Last Modified Time 12/26/2024 [id number] 1. Stop taking t he [place] Thyroid. 2. Start doing the levothyroxine 75 mcg daily 3. I would like to see you in 2 months and do the blood test a week before our appointment Not available 12/26/2024 15:24:02 02/27/2025 [id number] hypothyroidism: care instructions Not available 02/27/2025 14:39:08 [...] T4 1.33 NG/dL 0.70-1 .80 Not Available [facility] [address] [place], [address], 01/31/2025 21:01:33 02/01/20 25 01/31/2025 THYRO XINE TOTAL T4, total 10.2 mcg/d L 4.5-10 .9 Not Available [facility] [address] [place], [address], 01/31/2025 21:01:34 02/01/20 25 01/31/2025 THYRO GLOBU MARISEL ANTIB FLORIN antithyroglo bulin Ab 22.0 I_uni t/mL <=60.0 Not Available [facility] [address] [place], [address], 01/31/2025 21:01:34 02/01/20 25 01/31/2025 THYRO ID PEROX IDASE ANTIB FLORIN thyroid peroxidase Ab 43.0 I_uni t/mL <=60.0 Not Available [facility] [address] [place], [address], 01/31/2025 21:01:35 02/01/20 25 01/31/2025 THYRO ID PEROX IDASE ANTIB FLORIN note See Report [facility], [address], [place] [address] Not Available [facility] [address] [place], [address], 01/31/2025 21:01:35 Result Notes None recorded. Problems Name Problem SNOMED Code Status Onset Date Resolution Date Notes Provider Name and Address Organization Details Recorded Time Hypothyroidism 37177344 Active 2024 Paras Moe MD [address] [place], [address], [facility] - [facility] 15:19:30 Problem Notes None recorded. 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 12/26/2024 14:30:28 Date Recorded Body weight Oxygen saturation Heart rate Systolic And Diastolic Provider Name and Address Organization Details Last Updated DateTime 02/27/2025 86538.45 g 97 % 81 /min 118/78 mm[Hg] ARIELLE DICKENS [facility] 02/27/2025 14:20:37 Social History None recorded. Functional Status None recorded. Mental Status None recorded. Family History Nothing Reported. Medical History No medical history recorded. Gynecological HistoryNo gynecological history recorded. Obstetrics History GPAL:G 0 P 0 0 0 0 Past Encounters Encounter ID Performer Location Encounter Start Date Encounter Closed Date Diagnosis/Indication Diagnosis SNOMED-CT Code Diagnosis ICD10 Code Diagnosis IMO Codes Diagnosis Note [id number] Paras Moe MD [facility] [address] [place] [place] [address] [place] [address] 12/26/2024 14:22:56 12/26/2024 15:29:01 Hypothyroidism 23175111 E03.9 39335840 She has had several blood work with TSH that have been suppressed . She is experienci ng weight loss. They have occasional racing heart rate. Overall all signs of possible high levels of thyroid.Th e symptomato logy could be related to the use of [place] Thyroid which has a high T3-T4 ratio [...] that.I am going to discontinu e the [place] Thyroid and switch to 75 mcg of levothyrox ine. [id number] Paras Moe MD [facility] [address] [place] [address] [place] [address] 02/27/2025 13:53:59 02/27/2025 14:40:12 Hypothyroidism 91106737 E03.9 32523943 Her most recent thyroid function test shows [...] (MEDICARE REPLACEMENT/ ADVANTAGE - PPO) Viviane Rodriguez [id number] Viviane Rodriguez Notes Date Note Type Note Provider Name and Address Organization Details Recorded Time 12/26/2024 text/html 77-year-old female referred because of abnormal thyroid functions. She tells me that for many years she has been followed thyroid supplementation. Guardedly [place] Thyroid 90. She has been living in [place] where she had the diagnosis.Used to be [...] repair, bladder sling. Paras Moe MD [address] [place], [address], [facility] - [employer] 01/07/2025 21:59:37 02/27/2025 text/html 69-year-old female referred because of abnormal thyroid functions. She tells me that for many years she has been followed thyroid supplementation. [place] Thyroid 90. She has been living in [place] where she had the diagnosis.Used to be [...] aches and pains. Paras Moe MD [address] [place], [address], [facility] - [facility] 03/05/2025 08:51:01 OBGyn Episode No OBEpisode recorded.
--- OUTSIDE RECORDS SUMMARY | 2025-09-10 15:08 | XMS_ITS | Clinical Summary ---
Author Organization [facility] Address [address] [place] [address] Phone Care Team Providers Care Air Valve Repairer Name Role Phone Cristobal Shaffer MD Primary Care Provider [phone] Allergies Active Allergy Reactions Criticality Noted Date [...] Resolved Date Hiatal hernia with GERD 12/20/202401/12 Immunizations Immunization Administration Dates Next Due COVID-19 [...] Medical History Date Comments Scoliosis Uterine cancer ([facility] V24, [facility] V28) Osteopenia after menopause Asthma Hiatal hernia Acute migraine COPD (chronic obstructive pulmonary disease) ([facility] V24, [facility] V28) Family History Medical History Relation Name [...] Orientation Straight 08/12/2024 3: 32 PM EST Last Filed Vital Signs Vital Sign Reading [...] 02/19/2025 9:32 AM EDT Plan of Treatment Health Maintenance Due Date Last Done Comments Drug Screen 1955 Non-Opioid Controlled Substance Agreement 1955 Zoster Vaccines (1 of 2) 1973 RSV [...] this topic Medical Devices Implanted Type Area Awning Maker Device Identifier Shelf Expiration Date Model / Serial / Lot Implants Implants Right: Shoulder Internal And External Fixation Internal and External Fixation Right: Toes Procedures Procedure Name Priority Date/Time Associated Diagnosis Comments LIPID PANEL WITH REFLEX TO DIRECT LDL Routine 01/26/2025 10:10 AM EDT Screening for ischemic heart disease COLONOSCOPY Routine 07/21/2023 [facility] SCREENING DIGITAL Routine 05/12/2023 9:25 AM EDT Encounter for screening mammogram for malignant neoplasm of breast [facility] DEXA AXIAL SKELETON Routine 04/29/2023 9:59 AM EDT Encounter for screening for osteoporosis HEPATITIS C SCREENING Routine 04/29/2023 from Last 3 Months or Most Recently Relevant to Health Maintenance Results * (ABNORMAL) Lipid panel with reflex to direct LDL (01/26/2025 10:10 AM EDT) Cholesterol 202(H) 0 - 200 mg/dL LAB CHEMISTRY METHOD 01/26/2025 3:07 PM EDT [facility] Triglycerides 131 0 - 150 mg/dL LAB CHEMISTRY METHOD 01/26/2025 3:07 PM EDT [facility] HDL 58 >=40 mg/dL LAB CHEMISTRY METHOD 01/26/2025 3:07 PM EDT [facility] LDL Calculated 118(H) 0 - 100 mg/dL LAB CHEMISTRY METHOD 01/26/2025 3:07 PM EDT [facility] VLDL Cholesterol Arun 26.2 mg/dL LAB CHEMISTRY METHOD 01/26/2025 3:07 PM EDT [facility] Non HDL Chol. (LDL+VLDL) 144 <145 mg/dL LAB CHEMISTRY METHOD 01/26/2025 3:07 PM EDT [facility] Chol/HDL Ratio 3.5 0.0 - 4.4 LAB CHEMISTRY METHOD 01/26/2025 3:07 PM EDT [facility] Blood Venous blood specimen / Unknown Venipuncture / Unknown 01/26/2025 10:10 AM EDT 01/26/2025 10:10 AM EDT Aissatou Ortega NP LAB BLOOD ORDERABLES Final Resul t [facility] [address] [place] [address], * Colonoscopy (07/21/2023) Colonoscopy no interpretation , abstracted Anatomical Region Laterality Modality Other Historical Provider HEALTH MAINTENANCE Final Result * [facility] SCREENING DIGITAL (05/12/2023 9:25 AM EDT) Anatomical Region Laterality Modality Mammography 04/29/2023 8:50 AM EDT Narrative 05/12/2023 9:25 AM EDT [facility] Diagnostic Imaging Department [address] [place] [address] Patient: VIVIANE SLAUGHTER /Age/Sex: 1955 - 68 - F Unit#: [id number] Location/Status: SPDIMAM/REG CLI Mnemonic/Ordering Site: DIGSC/SPMAM Ordering Physician: CRISTOBAL SHAFFER MD [facility] Screening Digital - 04/29/23 - 949 Report Status:Signed EXAM: [facility] Screening Digital EXAM DATE AND TIME: 04/29/2023 9:51 AM HISTORY: Annual screening COMPARISON: 04/30/2013, 01/14/2012 TECHNIQUE: Bilateral digital breast tomosynthesis was performed in the CC and MLO projections. Computer aided detection with TriCipher 3D 3.1 was employed. TISSUE DENSITY: b. [...] MD Dic Date/Time: 05/12/23849 Sign date/Time: 05/12/23924 Procedure Note Javi Cisneros - 10/19/2023 [facility] Diagnostic Imaging Department [address] [place] [address] Patient: VIVIANE SLAUGHTER /Age/Sex: 1955 - 68 - F Unit#: [id number] Location/Status: SPDIMAM/REG CLI Mnemonic/Ordering Site: [facility] Ordering Physician: CRISTOBAL SHAFFER MD [facility] Screening Digital - 04/29/23 - 949 Report Status:Signed EXAM: [facility] Screening Digital EXAM DATE AND TIME: 04/29/2023 9:51 AM HISTORY: Annual screening COMPARISON: 04/30/2013, 01/14/2012 TECHNIQUE: Bilateral digital breast tomosynthesis was performed in the CCand MLO projections. Computer aided detection with TriCipher 3D 3.1was employed. TISSUE DENSITY: b. There [...] CISNEROS MD Dic Date/Time: 05/12/2350 Sign date/Time: 05/12/23924 Cristobal Shaffer MD IMG BI PROCEDURES Final Result * [facility] DEXA AXIAL SKELETON (04/29/2023 9:59 AM EDT) Anatomical Region Laterality Modality Mammography 04/29/2023 8:50 AM EDT Narrative 04/29/2023 9:59 AM EDT [facility] Diagnostic Imaging Department [address] [place] [address] Patient: SUKHJINDERVIVIANE./Age/Sex: 1955 - 67 - F Unit#: [id number] Location/Status: SPDIMA/REG CLI [facility]emonic[facility] Ordering Physician: CRISTOBAL SHAFFER MD [facility] Dexa Axial Skeleton - 04/29/2348 Report Status:Signed HISTORY: The patient is a [...] probability of hip fracture of 2.3%. Code 45878 Dictating Physician: BRYAN RUBIN MD Electronically Signed by: BRYAN RUBIN MD Dic Date/Time: 04/29/23957 Sign date/Time: 04/29/23958 Procedure Note Bryan Rubin MD - 10/19/2023 [facility] Diagnostic Imaging Department [address] [place] [address] Patient: VIVIANE SLAUGHTER Joselito /Age/Sex: 1955 - - Unit#: [id number] Location/Status: [facility] Mnemonic[facility] Ordering Physician: CRISTOBAL SHAFFER MD [facility] Dexa Axial Skeleton - [...] density of the femurs bilaterally is 0.765 gm/hu4vvdbt is 76% of that of young normals [...] probability of hip fracture of 2.3%. Code 08982 Dictating Physician: BRYAN RUBIN MD Electronically Signed by: BRYAN RUBIN MD Dic Date/Time: 04/29/2358 Sign date/Time: 04/29/23958 Cristobal Shaffer MD IMG BI PROCEDURES Final Result * Hepatitis C Screening (04/29/2023) Hepatitis C Screening abstracted Historical Provider HEALTH [...] currently active code status orders. Care Teams Air Valve Repairer Relationship Specialty Start Date End Date Cristobal Shaffer MD [address] [place] [phone] PCP - General Internal Medicine 07/28/24
--- OUTSIDE RECORDS SUMMARY | 2025-09-10 15:08 | XMS_ITS | Clinical Summary ---
Author Organization [facility] Prior to 02/10/25 Address [address] [place] [address] Care Team Providers Care Angiographer Name Role Phone Unavailable Primary Care Provider [...] (four) times a day. 0 05/01/2024 Active [place] Thyroid 90 MG tablet TAKE ONE TABLET [...] Self 1955 [address] [place] [address]
--- OUTSIDE RECORDS SUMMARY | 2025-09-10 15:08 | XMS_ITS | Clinical Summary ---
Author Organization [facility] Address [address] [place] [address] Phone Care Team Providers Care Bullet Assembly Press Operator Name Role Phone Elsa Shaffer MD [...] [place] [id number] [facility] [place] [id number] [facility] [place] [phone] [facility] MEDIC[facility] REPLACEMENT [address] [facility] MED[facility]PLACEMENT [address] [place] [facility] [place]IC[place] [id number] [facility] Care Teams Bullet Assembly Press Operator Relationship Specialty Start Date End Date Elsa Shaffer MD [address] [phone] PCP - General Internal Medicine 05/29/24 Additional Source Comments The information contained in this document represents components of the legal health record. It is not the complete legal health record.[facility]
== END 2025-09-10 13:33 | disposition home or self-care (01) ==
LOC: HO.HPHYS 13:07
PROVIDERS: Visit Provider Physician Assistant
DX: M25.811 Other specified joint disorders, right shoulder (principal)
CPT/HCPCS: 20610

== ENCOUNTER → 2025-09-10 13:07 | Outpatient (BNVA) | payer OTHER, SELFPAY | PROVIDERS: Visit Provider Physician Assistant | DX: M25.811 Other specified joint disorders, right shoulder (principal) | CPT/HCPCS: 20610; J2003; J3301 ==